=== PATIENT | male | born 1970 | race Caucasian/White ===

== ENCOUNTER 2016-12-18 12:38 | Emergency (ER) | payer MEDICARE, MEDICAID ==
[~2016-12-18] VITALS: Ht 167.6 cm; Wt 168.0 kg
[2016-12-18] MEDS ORDERED: ACET-2247 PO (13:40)
[2016-12-18] MEDS ORDERED: ASCO500 PO (13:40)
[2016-12-18] MEDS ORDERED: BISA5TAB12 PO (13:40)
[2016-12-18] MEDS ORDERED: POTA-9 PO (13:40)
[2016-12-18] MEDS ORDERED: ZOLP5 PO (13:40)
[2016-12-18] MEDS ORDERED: ONDA2VIA2 IV (13:40)
[2016-12-18] MEDS ORDERED: SENN1TAB77 PO (13:40)
[2016-12-18] MEDS ORDERED: FLUC100T PO (13:40)
[2016-12-18] MEDS ORDERED: FURO40 PO (13:40)
[2016-12-18] MEDS ORDERED: COLL30OI TP (13:40)
[2016-12-18] MEDS ORDERED: TRAM50TA4 PO (13:40)
[2016-12-18] MEDS ORDERED: ACID1TAB16 PO (13:40)
[2016-12-18] MEDS ORDERED: IBUP-1547 PO (13:40)
[2016-12-18] MEDS ORDERED: GABA-529 PO (13:40)
[2016-12-18] MEDS ORDERED: POLY238P2 PO (13:40)
[2016-12-18] MEDS ORDERED: VENL-193 PO (13:40)
[2016-12-18] MEDS ORDERED: NYST60PO TP (13:40)
[2016-12-18] MEDS ORDERED: HYDR8TAB43 PO (13:40)
[2016-12-18] MEDS ORDERED: VANC1.5P11 IV (13:40)
[2016-12-18] MEDS ORDERED: METR500 PO (13:40)
[2016-12-18] MEDS ORDERED: ENOX40DI9 SQ (13:40)
[2016-12-18 14:24] LABS: BASOPHILS % (AUTO) 0.4 % (0.0-2.0); EOSINOPHILS % (AUTO) 1.3 % (1.0-6.0); HEMATOCRIT 37.8 % (41-53); HEMOGLOBIN 12.6 g/dL (13.5-17.5); LYMPHOCYTES # (AUTO) 1.3 K/uL (1.0-4.8); MEAN CORPUSCULAR HEMOGLOBIN 26.8 pg (26.0-34.0); MEAN CORPUSCULAR HGB CONC 33.2 G/dL (31.0-37.0); MEAN CORPUSCULAR VOLUME 81 fL (80-100); MONOCYTES # (AUTO) 0.6 K/uL (0.1-1.0); MONOCYTES % (AUTO) 5.8 % (2.0-9.0); NEUTROPHILS # (AUTO) 8.7 K/uL (1.8-7.7); NEUTROPHILS % (AUTO) 80.5 % (40.0-70.0); PLATELET COUNT (AUTO) 244 K/uL (150-450); RED BLOOD CELL COUNT(AUTO) 4.69 MIL/uL (4.50-5.90); RED CELL DISTRIBUTION WIDTH 16.5 % (11.5-14.5); WHITE BLOOD COUNT (AUTO) 10.8 K/uL (4.5-11.0)
[2016-12-18 14:38] LABS: ANION GAP 7 mmol/L (8-16); CALCIUM, TOTAL 8.6 mg/dL (8.8-10.5); CARBON DIOXIDE 27 mmol/L (22-29); CHLORIDE 98 mmol/L (98-107); CREATININE 0.75 mg/dL (0.60-1.30); GLOMERULAR FILTR. RATE CALC > 60 mL/min (>60); POTASSIUM 3.8 mmol/L (3.5-5.1); SODIUM SERUM 132 mmol/L (136-145); UREA NITROGEN, BLOOD 13 mg/dL (7-18)
[2016-12-18 14:58] LABS: B-TYPE NATRIURETIC PEPTIDE 6 pg/mL (0-100)
[2016-12-18 15:03] LABS: ALANINE AMINOTRANSFERASE 27 U/L (12-78); ALBUMIN 3.3 g/dL (3.4-5.0); ASPARTATE AMINOTRANSFERASE 16 U/L (15-37); BILIRUBIN,TOTAL 0.3 mg/dL (0.1-1.0); CREATINE KINASE MB 0.6 ng/mL (0-5); CREATINE KINASE, TOTAL 117 U/L (39-308); TOTAL PROTEIN, SERUM 7.9 g/dL (6.4-8.2)
[2016-12-18] MEDS ORDERED: KETOROLAC TROMETHAMINE 60 MG/2 ML VIAL IM ONE (15:15)
[2016-12-18 15:23] LABS: ADD UA MICROSCOPIC YES; APPEARANCE,URINE CLEAR (CLEAR); GLUCOSE, URINE (UA) NEGATIVE (NEGATIVE); KETONES,URINE NEGATIVE (NEGATIVE); LEUKOCYTE ESTERASE ,URINE TRACE (NEGATIVE); OCCULT BLOOD,URINE NEGATIVE (NEGATIVE); PH,URINE 6.5 (5.0-8.0); PROTEIN,URINE NEGATIVE (NEGATIVE)
[2016-12-18] MEDS ORDERED: KETOROLAC TROMETHAMINE 30 MG/ML VIAL IVP ONE (15:45)
[2016-12-18 15:46] LABS: RBC,URINE 0-2 /HPF (0-2)
[2016-12-18] MEDS ORDERED: HYDROmorphone 2 MG/ML SYRINGE IVP ONE (16:00)
[2016-12-18] MEDS ORDERED: MUPIROCIN CALCIUM 2% 22 GM OINTMENT TP ONE (16:15)
[2016-12-18 16:42] VITALS: BP 103/58
== END 2016-12-18 17:13 | disposition home or self-care (01) ==
LOC: EMS 12:49
DX: F41.9 Anxiety disorder, unspecified (principal); L03.311 Cellulitis of abdominal wall; G89.29 Other chronic pain; I50.9 Heart failure, unspecified
CPT/HCPCS: 36415; 71010; 80053; 81001; 82550; 82553; 83690; 83880; 84484; 85025; 93005; 96374; 96375; 99285; J1170; J1885